=== PATIENT | male | born 1945 ===

== ENCOUNTER 2020-10-05 07:56 | Inpatient (IN) ==
[2020-10-05 09:16] LABS: Calcium 9.1 mg/dL (8.6-10.3); EGFR African American 96.1 (>60); EGFR Non-African American 79.4 (>60); Magnesium 1.8 mg/dL (1.9-2.7); Potassium 4.5 mmol/L (3.5-5.0)
[2020-10-06 06:18] LABS: Calcium 9.2 mg/dL (8.6-10.3); EGFR African American 94.9 (>60); EGFR Non-African American 78.4 (>60); Potassium 4.5 mmol/L (3.5-5.0)
[2020-10-07 07:03] LABS: Calcium 9.2 mg/dL (8.6-10.3); EGFR African American 92.6 (>60); EGFR Non-African American 76.6 (>60); Potassium 4.3 mmol/L (3.5-5.0)
[2020-10-07 07:07] LABS: Creatinine, Serum 0.94 mg/dL (0.51-0.95); Urine Creatinine Concentration 78.16 mg/dL
[2020-10-07 09:17] LABS: Magnesium 1.8 mg/dL (1.9-2.7)
[2020-10-07] MEDS ORDERED: Magnesium Sulfate IV 2 GM in NS 0.9% 100 ml BAG 100 ML IVPB ONE (09:36)
[2020-10-07] MEDS ORDERED: Magnesium Sulfate 2 GM IV (Premix) IVPB ONE (11:00)
[2020-10-07 12:42] VITALS: BP 129/63
== END 2020-10-07 14:40 | disposition home or self-care (01) | DRG 309 ==
LOC: MEDTELE 07:56
PROVIDERS: ADMIT Specialist; ATTEND Specialist